=== PATIENT | female | born 1975 | race Two or more races ===

== ENCOUNTER 2021-05-15 11:54 | Emergency (ER) | payer BC, OTHER ==
[~2021-05-15] VITALS: Ht 162.6 cm; Wt 68.0 kg
[2021-05-15 12:53] VITALS: BP 139/93
[2021-05-15] MEDS ORDERED: IBUP600T27 PO (12:56)
== END 2021-05-15 13:05 | disposition home or self-care (01) ==
LOC: ER 11:54
DX: S63.501A Unspecified sprain of right wrist, initial encounter (principal); S46.912A Strain of unspecified muscle, fascia and tendon at shoulder and upper arm level, left arm, initial encounter; X50.9XXA Other and unspecified overexertion or strenuous movements or postures, initial encounter; Y93.89 Activity, other specified; Y92.89 Other specified places as the place of occurrence of the external cause; Y99.8 Other external cause status
CPT/HCPCS: 73030; 73110